=== PATIENT | male | born 1995 | race Caucasian/White ===

== ENCOUNTER → 2023-05-29 16:16 | Outpatient (BNVA) | payer MEDICAID, SELFPAY | PROVIDERS: PCP Family Medicine; Visit Provider Family Medicine | DX: N48.89 Other specified disorders of penis (principal) | CPT/HCPCS: 80053; 84439; 84443; 85025 ==

== ENCOUNTER → 2025-05-15 13:56 | Outpatient (BNVA) | payer MEDICAID, SELFPAY | PROVIDERS: PCP Family Medicine; Visit Provider Family Medicine | DX: I83.92 Asymptomatic varicose veins of left lower extremity (principal) | CPT/HCPCS: 80053; 84439; 84443; 85025 ==